=== PATIENT | male | born 1995 | race Caucasian/White ===

== ENCOUNTER 2017-12-26 19:21 | Emergency (ER) | payer BC ==
[~2017-12-26] VITALS: Ht 154.9 cm; Wt 77.3 kg
[2017-12-26 19:26] VITALS: BP 122/75; PULSE 70; TEMP 97.5
[2017-12-26] MEDS ORDERED: CEPHALEXIN500 M1 PO (21:14)
== END 2017-12-26 21:30 | disposition home or self-care (01) ==
LOC: COL.ER 19:21
DX: T81.31XA Disruption of external operation (surgical) wound, not elsewhere classified, initial encounter (principal)

== ENCOUNTER 2018-01-08 11:14 | Emergency (ER) | payer BC ==
[~2018-01-08 11:14] MED LIST: CEPHALEXIN500 M1 PO
[2018-01-08 11:18] VITALS: BP 116/59; PULSE 72; TEMP 97
== END 2018-01-08 11:54 | disposition home or self-care (01) ==
LOC: COL.ER 11:14
DX: S11.91XD Laceration without foreign body of unspecified part of neck, subsequent encounter (principal); X58.XXXD Exposure to other specified factors, subsequent encounter